=== PATIENT | female | born 1980 | race Caucasian/White ===

== ENCOUNTER 2016-11-16 14:56 | Emergency (ER) | payer OTHER ==
[~2016-11-16] VITALS: Ht 172.7 cm; Wt 74.8 kg
[2016-11-16 14:57] VITALS: BP 155/91
[2016-11-16] MEDS ORDERED: AZO95TAB PO (15:08)
[2016-11-16 15:34] LABS: CONTROL LINE UCG INT CTR LINE PRESENT; MICROSCOPIC INDICATED? MAN YES (NO)
[2016-11-16 15:46] LABS: RBC, URINE 0-1 /hpf (0-3); SQUAMOUS EPITHELIAL CELL URINE MOD AMOUNT /hpf (SMALL AMT); WBC, URINE 20-30 /hpf (0-3)
[2016-11-16 15:47] LABS: BACTERIA, URINE MOD AMOUNT; HYALINE CAST, URINE NONE SEEN /lpf (0-1); MICROSCOPIC EXAM PERFORMED
[2016-11-16] MEDS ORDERED: BACT800T5 PO (15:52)
== END 2016-11-16 16:16 | disposition home or self-care (01) ==
LOC: M ED 16:05
DX: N30.00 Acute cystitis without hematuria (principal)

== ENCOUNTER 2016-12-06 13:58 | Emergency (ER) | payer OTHER ==
[~2016-12-06] VITALS: Ht 170.2 cm; Wt 74.8 kg
[2016-12-06 13:58] VITALS: BP 142/85
[~2016-12-06 13:58] MED LIST: AZO95TAB PO; BACT800T5 PO
[2016-12-06] MEDS ORDERED: TYLE325C PO (14:04)
[2016-12-06] MEDS ORDERED: ZITHTAB PO (14:17)
== END 2016-12-06 14:39 | disposition home or self-care (01) ==
LOC: M ED 14:13
DX: J02.9 Acute pharyngitis, unspecified (principal)

== ENCOUNTER 2016-12-23 10:45 | Emergency (ER) | payer OTHER ==
[~2016-12-23] VITALS: Ht 170.2 cm; Wt 76.7 kg
[2016-12-23 10:45] VITALS: BP 117/80
[~2016-12-23 10:45] MED LIST changes: +TYLE325C PO; +ZITHTAB PO
[2016-12-23 11:22] LABS: MICROSCOPIC INDICATED? MAN YES (NO)
[2016-12-23 11:33] LABS: BACTERIA, URINE SMALL AMOUNT; HYALINE CAST, URINE NONE SEEN /lpf (0-1); SQUAMOUS EPITHELIAL CELL URINE SMALL AMOUNT /hpf (SMALL AMT)
[2016-12-23 11:34] LABS: MICROSCOPIC EXAM PERFORMED
[2016-12-23] MEDS ORDERED: DIFL150T PO (11:50)
[2016-12-23] MEDS ORDERED: LEVA250T PO (11:50)
[2016-12-23] MEDS ORDERED: PYRI200T5 PO (11:50)
== END 2016-12-23 11:59 | disposition home or self-care (01) ==
LOC: M ED 11:52
DX: N39.0 Urinary tract infection, site not specified (principal)

== ENCOUNTER 2017-03-24 09:14 | Emergency (ER) | payer OTHER ==
[~2017-03-24] VITALS: Ht 170.2 cm; Wt 71.5 kg
[~2017-03-24 09:14] MED LIST changes: +DIFL150T PO; +LEVA1TAB PO; +PYRI1TAB5 PO
[2017-03-24] MEDS ORDERED: HYDROXYCUT PO (09:25)
[2017-03-24] MEDS ORDERED: IBUP-1022 PO (09:25)
[2017-03-24] MEDS ORDERED: ADACEL/BOOSTRIX VACCINE (DIPHTH/PERTUSS/ACELL/TETANUS)0.5ML SYR (90715) IM ONE (10:00)
--- NOTE | 2017-03-24 10:28 | REP ---
LEFT FINGERS, FOUR VIEWS: HISTORY: Laceration. There is no acute fracture or dislocation. The joint spaces are normal in appearance. IMPRESSION: There is no acute fracture or dislocation. Signed by Renato Barron MD 03/24/2017 10:33 A
[2017-03-24 11:03] LABS: ANION GAP 11 MEQ/L (8-16); BLOOD UREA NITROGEN 12 MG/DL (7-18); CALCIUM LEVEL 8.8 MG/DL (8.5-10.1); CARBON DIOXIDE LEVEL 27 MEQ/L (21-32); CHLORIDE LEVEL 108 MEQ/L (98-107); CREATININE FOR GFR 0.74 MG/DL (0.55-1.02); GLOMERULAR FILTRATION RATE > 60.0 (>60); GLUCOSE, FASTING 85 MG/DL (70-105); POTASSIUM SERUM 3.9 MEQ/L (3.5-5.1); SODIUM LEVEL 146 MEQ/L (136-145)
[2017-03-24] MEDS ORDERED: IBUPROFEN 600 MG TAB PO ONE (11:15)
[2017-03-24 11:27] VITALS: BP 153/87
== END 2017-03-24 11:28 | disposition home or self-care (01) ==
LOC: M ED 09:14
DX: T75.4XXA Electrocution, initial encounter (principal); S61.213A Laceration without foreign body of left middle finger without damage to nail, initial encounter; W26.8XXA Contact with other sharp object(s), not elsewhere classified, initial encounter; Y92.099 Unspecified place in other non-institutional residence as the place of occurrence of the external cause; Y93.89 Activity, other specified; Y99.9 Unspecified external cause status

== ENCOUNTER → 2018-05-20 | Outpatient (CLI) | payer OTHER ==
[~2018-05-20] MED LIST changes: -AZO95TAB PO; -BACT800T5 PO; -DIFL150T PO; +GASTROGRAFIN SOLUTION 30ML (Q9963) As Ordered; +ISOVUE-370 76% 100ML VIAL (Q9967) As Ordered; -LEVA1TAB PO; -PYRI1TAB5 PO; -TYLE325C PO; -ZITHTAB PO
== END ==
LOC: M RAD 15:29
DX: R10.9 Unspecified abdominal pain (principal)

== ENCOUNTER → 2018-06-21 | Outpatient (REF) | payer OTHER ==
[2018-06-21 18:58] LABS: APPEARANCE, URINE CLEAR (CLEAR); BACTERIA, URINE AUTO 1+ (NEGATIVE); BILIRUBIN, URINE AUTO NEGATIVE (NEGATIVE); BLOOD, URINE BLOOD NEGATIVE (NEGATIVE); COLOR, URINE STRAW (YELLOW); GLUCOSE, URINE (UA) AUTO NEGATIVE (NEGATIVE); KETONE, URINE AUTO NEGATIVE (NEGATIVE); LEUKOCYTE ESTERASE, URINE AUTO TRACE (NEGATIVE); MUCUS, URINE SMALL (NEGATIVE); NITRITE, URINE AUTO NEGATIVE (NEGATIVE); PROTEIN, URINE AUTO NEGATIVE (NEGATIVE); RBC, URINE AUTO 1 /HPF (0-3); SPECIFIC GRAVITY URINE AUTO 1.009 (1.002-1.035); SQUAMOUS EPITHELIAL CELL UR AU 4 /HPF (0-6); UROBILINOGEN, URINE AUTO 0.2 mg/dL (0.0-2.0); WBC, URINE AUTO 4 /HPF (0-3)
== END ==
LOC: M SMT 17:33
DX: N20.0 Calculus of kidney (principal)

== ENCOUNTER → 2018-07-28 | Outpatient (CLI) | payer OTHER ==
[~2018-07-28] MED LIST changes: +AZO95TAB PO; +BACT800T5 PO; +DIFL150T PO; -GASTROGRAFIN SOLUTION 30ML (Q9963) As Ordered; +HYDROXYCUT PO; +IBUP-1022 PO; -ISOVUE-370 76% 100ML VIAL (Q9967) As Ordered; +LEVA250T13 PO; +PYRI1TAB5 PO; +TYLE325C PO; +ZITHTAB PO
--- NOTE | 2018-07-29 05:20 | REP ---
Clinical: Nephrolithiasis. Technique: Axial noncontrast images from the lung bases to the pubic symphysis with coronal and sagittal re-formations. Comparison: 05/20/2018. Findings: Evaluation of the urinary tract system includes 5 and 2 mm nonobstructing left intrarenal calculi. The right kidney is normal in appearance. There is no evidence for perinephric stranding, hydroureteronephrosis or obstructing ureteral calculi. The bladder is unremarkable. Liver, spleen, pancreas, collapsed gallbladder, and bilateral adrenal glands are normal. The enteric system is without obstruction or acute inflammatory process. Normal terminal ileum and appendix identified in the right lower quadrant. Pelvis demonstrates normal bladder and age-appropriate uterus/adnexa. Small phleboliths noted in the pelvis. No ascites. No free air. No adenopathy. Abdominal aorta without aneurysm. Musculoskeletal structures demonstrate scoliosis and degenerative change. Impression: 2 mm and 5 mm nonobstructing left renal calculi. Electronically Signed by Dae Clark MD 07/29/2018 05:11 A
== END ==
LOC: M RAD 15:20
PROVIDERS: ATTEND Urology Pediatric Urology
DX: N20.0 Calculus of kidney (principal)

== ENCOUNTER → 2019-10-01 | Outpatient (REF) | payer OTHER | LOC: M LAB REF 10:34 | PROVIDERS: ATTEND Physician Assistant | DX: J02.9 Acute pharyngitis, unspecified (principal) ==

== ENCOUNTER → 2021-10-16 | Outpatient (REF) | payer OTHER ==
[2021-10-16 21:41] LABS: APPEARANCE, URINE CLOUDY (CLEAR); BACTERIA, URINE AUTO 2+ (NEGATIVE); BILIRUBIN, URINE AUTO NEGATIVE (NEGATIVE); BLOOD, URINE BLOOD 3+ (NEGATIVE); CALCIUM OXALATE CRYSTALS LARGE; COLOR, URINE AMBER (YELLOW); GLUCOSE, URINE (UA) AUTO NEGATIVE (NEGATIVE); KETONE, URINE AUTO NEGATIVE (NEGATIVE); LEUKOCYTE ESTERASE, URINE AUTO 2+ (NEGATIVE); MUCUS, URINE LARGE (NEGATIVE); NITRITE, URINE AUTO POSITIVE (NEGATIVE); PROTEIN, URINE AUTO 3+ mg/dL (NEGATIVE); RBC, URINE AUTO 106 /HPF (0-3); SPECIFIC GRAVITY URINE AUTO 1.024 (1.002-1.035); SQUAMOUS EPITHELIAL CELL UR AU 1 /HPF (0-6); WBC, URINE AUTO TNTC /HPF (0-3)
[2021-10-16 23:12] LABS: GC DNA AMPLIFICATION NEGATIVE (NEGATIVE)
== END ==
LOC: M LAB REF 20:59
PROVIDERS: ATTEND Physician Assistant Medical
DX: N39.0 Urinary tract infection, site not specified (principal)

== ENCOUNTER 2021-12-31 06:11 | Day surgery (SDC) | payer OTHER ==
[~2021-12-31] VITALS: Ht 170.2 cm; Wt 82.6 kg
[~2021-12-31 06:11] MED LIST changes: +ACETAMINOPHEN *IV* 1,000 MG IV ONE; +LISI10TA22 PO; +ceFAZolin SOD 2 GM in IV 1 EA IV ONE
[2021-12-31] MEDS ORDERED: LR 1,000 ML IV SCH ×3 (06:40→12:15)
[2021-12-31] MEDS ORDERED: propofoL 200 MG/20 ML VIAL As Ordered ONE (07:11)
[2021-12-31] MEDS ORDERED: ROCURONIUM BROMIDE 50 MG/5 ML VIAL As Ordered ONE ×2 (07:11→08:35)
[2021-12-31] MEDS ORDERED: fentaNYL 100 MCG/2 ML INJECTION As Ordered ONE (07:11)
[2021-12-31] MEDS ORDERED: LIDOCAINE 2% 100MG/5ML SDV (FOR ANES.) As Ordered ONE (07:11)
[2021-12-31] MEDS ORDERED: HYDROmorphone HCL 2MG/ML 1ML VIAL As Ordered ONE (07:11)
[2021-12-31] MEDS ORDERED: MIDAZOLAM INJ 2MG/2ML VIAL (J2250 PER 1MG) As Ordered ONE (07:11)
[2021-12-31] MEDS ORDERED: KETOROLAC 60MG 2ML VIAL As Ordered ONE (07:12)
[2021-12-31] MEDS ORDERED: dexameTHASONE 4 MG/ML 1ML VIAL (J1100 PER 1MG) As Ordered ONE (07:12)
[2021-12-31] MEDS ORDERED: ONDANSETRON 4MG/2ML VIAL As Ordered ONE (07:12)
[2021-12-31 07:14] LABS: HEMATOCRIT 38.1 % (36.0-47.0); HEMOGLOBIN 12.4 g/dl (12.0-15.5); MEAN CORPUSCULAR HGB CONC 32.5 g/dl (32.0-36.5); PLATELET COUNT, AUTOMATED 173 10^3/uL (150-450); RED BLOOD COUNT 4.28 10^6/uL (4.00-5.40); WHITE BLOOD COUNT 5.5 10^3/uL (4.0-10.0)
[2021-12-31] MEDS ORDERED: ACETAMINOPHEN 1000MG 100ML IV BTL (OFIRMEV) (J0131 PER 10MG) As Ordered ONE (07:45)
[2021-12-31] MEDS ORDERED: GLYCOPYRROLATE INJ 0.2 MG/ML 2 ML VIAL As Ordered ONE (08:02)
[2021-12-31] MEDS ORDERED: SUGAMMADEX SODIUM 500 MG/5 ML VIAL (BRIDION) As Ordered ONE (08:05)
[2021-12-31] MEDS ORDERED: ePHEDrine SULFATE 25 MG/5 ML(5MG/ML) SYRINGE As Ordered ONE (08:09)
[2021-12-31] MEDS: BUPIVACAINE HCL 0.25% 30ML VIAL As Ordered ONE ×2 (08:54→11:17)
[2021-12-31] MEDS ORDERED: ONDANSETRON 4MG/2ML VIAL IV PRN (11:30)
[2021-12-31] MEDS ORDERED: oxyCODONE 5MG TAB PO PRN ×2 (11:30→12:15)
[2021-12-31] MEDS ORDERED: fentaNYL 100 MCG/2 ML INJECTION IV PRN (11:30)
[2021-12-31 13:00] VITALS: BP 113/59
[2021-12-31 14:00] VITALS: BP 116/67
[2021-12-31 15:00] VITALS: BP 125/64
[2021-12-31] MEDS ORDERED: ACETAMINOPHEN 500 MG TAB PO SCH (16:00)
== END 2021-12-31 16:20 | disposition home or self-care (01) ==
LOC: M SDC 06:11 → EDSTATUS 07:30 → M PED 13:00 → M SDC 16:20
PROVIDERS: ATTEND Obstetrics & Gynecology
DX: N93.9 Abnormal uterine and vaginal bleeding, unspecified (principal); D25.1 Intramural leiomyoma of uterus; Z30.2 Encounter for sterilization; I10 Essential (primary) hypertension; F41.9 Anxiety disorder, unspecified; Z79.899 Other long term (current) drug therapy; Z88.2 Allergy status to sulfonamides
CPT/HCPCS: 36415; 58552; 81025; 85027; 86850; 86900; 86901; 88307; J0131; J0690; J1100; J1170; J1885; J2250; J2405; J3010

== ENCOUNTER → 2022-05-20 | Outpatient (REF) | payer OTHER ==
[~2022-05-20] MED LIST changes: -ACETAMINOPHEN *IV* 1,000 MG IV ONE; -ceFAZolin SOD 2 GM in IV 1 EA IV ONE
[2022-05-21 01:15] LABS: APPEARANCE, URINE MANUAL HAZY (CLEAR); COLOR, URINE MANUAL YELLOW (YELLOW); GLUCOSE, URINE (UA) MANUAL NEGATIVE (NEGATIVE); PH,URINE MAN 6.5 UNITS (5.0 - 7.0); PROTEIN, URINE MANUAL NEGATIVE (NEGATIVE)
[2022-05-21 01:16] LABS: BILIRUBIN, URINE MANUAL NEGATIVE (NEGATIVE); BLOOD URINE MANUAL POSITIVE (NEGATIVE); KETONE, URINE MANUAL 1+ mg/dL (NEGATIVE); LEUKOCYTE ESTERASE, URINE MAN POSITIVE (NEGATIVE); NITRITE, URINE MANUAL POSITIVE (NEGATIVE); UROBILINOGEN, URINE MANUAL NORMAL (NORMAL)
[2022-05-21 01:43] LABS: WBC, URINE TNTC /hpf (0-3)
[2022-05-21 01:44] LABS: BACTERIA, URINE LARGE AMOUNT; HYALINE CAST, URINE NONE SEEN /lpf (0-1); SQUAMOUS EPITHELIAL CELL URINE SMALL AMOUNT /hpf (SMALL AMT)
== END ==
LOC: M LAB REF 23:27
PROVIDERS: ATTEND Physician Assistant
DX: N39.0 Urinary tract infection, site not specified (principal)

== ENCOUNTER → 2022-11-08 | Outpatient (REF) | payer OTHER ==
[2022-11-09 13:43] LABS: APPEARANCE, URINE CLOUDY (CLEAR); BACTERIA, URINE AUTO 1+ (NEGATIVE); BILIRUBIN, URINE AUTO NEGATIVE (NEGATIVE); BLOOD, URINE BLOOD 2+ (NEGATIVE); CALCIUM OXALATE CRYSTALS LARGE; COLOR, URINE YELLOW (YELLOW); GLUCOSE, URINE (UA) AUTO NEGATIVE (NEGATIVE); KETONE, URINE AUTO TRACE mg/dL (NEGATIVE); LEUKOCYTE ESTERASE, URINE AUTO 3+ (NEGATIVE); MUCUS, URINE SMALL (NEGATIVE); NITRITE, URINE AUTO POSITIVE (NEGATIVE); PROTEIN, URINE AUTO 2+ mg/dL (NEGATIVE); RBC, URINE AUTO 20 /HPF (0-3); SQUAMOUS EPITHELIAL CELL UR AU 3 /HPF (0-6); UROBILINOGEN, URINE AUTO 0.2 mg/dL (0.0-2.0); WBC, URINE AUTO TNTC /HPF (0-3)
== END ==
LOC: M LAB REF 13:00
PROVIDERS: ATTEND Physician Assistant Medical
DX: N39.0 Urinary tract infection, site not specified (principal)

== ENCOUNTER 2022-12-01 15:35 | Emergency (ER) | payer OTHER ==
[~2022-12-01] VITALS: Ht 170.2 cm; Wt 83.6 kg
[2022-12-01 18:55] VITALS: BP 180/110
[2022-12-01] MEDS ORDERED: KETOROLAC 30 MG/ML 1ML VIAL IV ONE (19:10)
[2022-12-01] MEDS ORDERED: predniSONE 20 MG TAB PO ONE (19:10)
[2022-12-01] MEDS ORDERED: MEDR4PAK PO (19:11)
[2022-12-01] MEDS ORDERED: LISI10TA22 PO (19:11)
[2022-12-01 20:08] VITALS: BP 196/94
== END 2022-12-01 20:10 | disposition home or self-care (01) ==
LOC: M ED 15:35
DX: M54.32 Sciatica, left side (principal); I10 Essential (primary) hypertension; Z79.811 Long term (current) use of aromatase inhibitors; Z79.899 Other long term (current) drug therapy; Z88.2 Allergy status to sulfonamides
CPT/HCPCS: 93971; 96374; 99283; J1885; J7512

== ENCOUNTER → 2022-12-29 | Outpatient (REF) | payer OTHER ==
[~2022-12-29] MED LIST changes: +MEDR4PAK PO
[2022-12-29 13:24] LABS: APPEARANCE, URINE CLOUDY (CLEAR); BACTERIA, URINE AUTO 1+ (NEGATIVE); BILIRUBIN, URINE AUTO NEGATIVE (NEGATIVE); BLOOD, URINE BLOOD NEGATIVE (NEGATIVE); COLOR, URINE YELLOW (YELLOW); GLUCOSE, URINE (UA) AUTO NEGATIVE (NEGATIVE); KETONE, URINE AUTO NEGATIVE (NEGATIVE); LEUKOCYTE ESTERASE, URINE AUTO 3+ (NEGATIVE); MUCUS, URINE SMALL (NEGATIVE); NITRITE, URINE AUTO NEGATIVE (NEGATIVE); PROTEIN, URINE AUTO 1+ mg/dL (NEGATIVE); RBC, URINE AUTO 14 /HPF (0-3); SQUAMOUS EPITHELIAL CELL UR AU 1 /HPF (0-6); TRANSITIONAL EPITHELIAL AUTO 1 /HPF; UROBILINOGEN, URINE AUTO 0.2 mg/dL (0.0-2.0); WBC, URINE AUTO TNTC /HPF (0-3)
[2022-12-29 15:32] LABS: GC DNA AMPLIFICATION NEGATIVE (NEGATIVE)
== END ==
LOC: M LAB REF 12:13
PROVIDERS: ATTEND Physician Assistant Medical
DX: N39.0 Urinary tract infection, site not specified (principal); Z11.3 Encounter for screening for infections with a predominantly sexual mode of transmission

== ENCOUNTER → 2023-03-03 | Outpatient (REF) | payer OTHER ==
[~2023-03-03] MED LIST changes: +CARI1TAB7 PO
[2023-03-03 16:44] LABS: APPEARANCE, URINE MANUAL HAZY (CLEAR); COLOR, URINE MANUAL ORANGE (YELLOW)
[2023-03-03 16:45] LABS: PROTEIN, URINE MANUAL OBSCURED mg/dL (NEGATIVE); SPECIFIC GRAVITY,URINE MANUAL 1.025 (1.002-1.035)
[2023-03-03 16:46] LABS: GLUCOSE, URINE (UA) MANUAL NEGATIVE (NEGATIVE); KETONE, URINE MANUAL NEGATIVE (NEGATIVE); UROBILINOGEN, URINE MANUAL 4 MG mg/dl (NORMAL)
[2023-03-03 16:47] LABS: BILIRUBIN, URINE MANUAL OBSCURED (NEGATIVE); BLOOD URINE MANUAL POSITIVE (NEGATIVE); LEUKOCYTE ESTERASE, URINE MAN OBSCURED (NEGATIVE); NITRITE, URINE MANUAL OBSCURED (NEGATIVE)
[2023-03-03 17:02] LABS: SQUAMOUS EPITHELIAL CELL URINE SMALL AMOUNT /hpf (SMALL AMT)
[2023-03-03 17:03] LABS: BACTERIA, URINE LARGE AMOUNT; RBC, URINE 40-50 /hpf (0-3); WBC, URINE 20-30 /hpf (0-3)
== END ==
LOC: M LAB REF 16:17
PROVIDERS: ATTEND Physician Assistant Medical
DX: N39.0 Urinary tract infection, site not specified (principal)

== ENCOUNTER → 2024-01-24 | Outpatient (REF) | payer OTHER ==
[2024-01-24 13:48] LABS: AMORPHOUS SEDIMENT SMALL (NEGATIVE); APPEARANCE, URINE CLOUDY (CLEAR); BACTERIA, URINE AUTO 1+ (NEGATIVE); BILIRUBIN, URINE AUTO NEGATIVE (NEGATIVE); BLOOD, URINE BLOOD NEGATIVE (NEGATIVE); COLOR, URINE YELLOW (YELLOW); GLUCOSE, URINE (UA) AUTO NEGATIVE (NEGATIVE); KETONE, URINE AUTO NEGATIVE (NEGATIVE); LEUKOCYTE ESTERASE, URINE AUTO 2+ (NEGATIVE); NITRITE, URINE AUTO POSITIVE (NEGATIVE); PROTEIN, URINE AUTO NEGATIVE (NEGATIVE); RBC, URINE AUTO 2 /HPF (0-3); SQUAMOUS EPITHELIAL CELL UR AU 2 /HPF (0-6); UROBILINOGEN, URINE AUTO 0.2 mg/dL (0.0-2.0); WBC, URINE AUTO 24 /HPF (0-3)
== END ==
LOC: M LAB REF 12:51
PROVIDERS: ATTEND Physician Assistant
DX: N39.0 Urinary tract infection, site not specified (principal)